=== PATIENT | male | born 1985 | race Caucasian/White ===

== ENCOUNTER 2025-03-06 23:05 | Emergency (ER) | payer MEDICAID ==
[~2025-03-06] VITALS: Ht 165.1 cm; Wt 82.0 kg
[2025-03-06 23:30] VITALS: O2SAT 98
[2025-03-06 23:35] VITALS: BP 117/81; PULSE 84; RESP 16; TEMP 36.6; O2SAT 98
== END 2025-03-07 02:34 | disposition left against medical advice (07) ==
LOC: ER 23:05
DX: H57.11 Ocular pain, right eye (principal); Z53.21 Procedure and treatment not carried out due to patient leaving prior to being seen by health care provider
CPT/HCPCS: 99283